=== PATIENT | male | born 1970 | race Caucasian/White ===

== ENCOUNTER → 2018-08-26 | Outpatient (CLI) | payer OTHER ==
--- NOTE | 2018-08-26 09:29 | RAD ---
EXAM DESCRIPTION: Ankle,Right 3 Views CLINICAL HISTORY: PAIN IN RIGHT ANKLE AND JOINTS OF RIGHT FOOT COMPARISON: 04 January 2017 TECHNIQUE: 3 views right FINDINGS: There is disruption of the ankle mortise with lateral subluxation of the talus in relation to the tibia. Fragmentation of the medial malleolus is observed from prior fracturing. Soft tissue swelling is observed about the ankle. An ankle joint effusion is seen. Tibial talar arthritis is noted. IMPRESSION: The exam reveals lateral subluxation of the talus in relation to the tibia. Degenerative changes are observed in the tibial talar articulation. The changes are more pronounced than seen previously. Electronically signed by: Felipe Colon MD 08/26/2018 9:27 AM CDT
== END ==
LOC: RAD 08:43
PROVIDERS: ATTEND Orthopaedic Surgery
DX: S93.01XA Subluxation of right ankle joint, initial encounter (principal)

== ENCOUNTER 2018-08-28 18:52 | Emergency (ER) | payer OTHER ==
[2018-08-28] MEDS ORDERED: diltiaZEM DRIP 125 MG/25 ML VIAL IVPB ONE (19:05)
--- NOTE | 2018-08-28 19:09 | ED.PDOC ---
History of Present Illness - General Chief Complaint: Chest Pain/NM Stated Complaint: Chest discomfort Time Seen by Provider: 08/28/18 19:01 Source: patient, Vital Signs reviewed Exam Limitations: no limitations Additional Information: 48 YEAR OLD HERE FOR EVALUATION OF " PALPITAIONS " ONSET YESTERDAY AFTERNOON NO ASSOCIATED CHEST PAIN NO SHORTNESS OF BREATH NO DIAPHORESIS DIZZINESS OR ANY NUMBNESS OOR WEAKNESS HE HAS HISTORY OF HYPERTENSION GOUT AND RESTLESS LEG SYNDROME - History of Present Illness Timing/Duration: days Severity: mild Prior Chest Pain/Cardiac Workup: no prior chest pain Improving Factors: nothing Worsening Factors: nothing Allergies/Adverse Reactions: Allergies NO KNOWN ALLERGY Allergy (Verified 10/06/15 15:03) Home Medications: Ambulatory Orders Allopurinol [Zyloprim] 100 mg PO DAILY 10/06/15 Olmesartan Medoxomil [Benicar] 20 mg PO DAILY 10/06/15 Carbidopa-Levodopa [Carbidopa/Levodopa 25-100 mg] 1 tab PO BEDTIME PRN 08/28/18 Review of Systems - Review of Systems Constitutional: States: no symptoms reported EENTM: States: no symptoms reported Respiratory: States: no symptoms reported Cardiology: States: palpitations Gastrointestinal/Abdominal: States: no symptoms reported Genitourinary: States: no symptoms reported Musculoskeletal: States: other - RIGHT ANKLE PAIN HAD INTRAARTICULAR STEROIDS [address]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 Skin: States: no symptoms reported Neurological: States: no symptoms reported Endocrine: States: no symptoms reported Past Medical History (General) - Patient Medical History Hx Stroke: No Hx Congestive Heart Failure: No Hx Hypertension: Yes Hx Diabetes: No Hx Gastroesophageal Reflux: No Hx MRSA: No Surgical History: cholecystectomy - Vaccination History Hx Influenza Vaccination: Yes - 2018 Hx Pneumococcal Vaccination: No - Social History Hx Tobacco Use: No Hx Alcohol Use: No Family Medical History - Family History Father Living Status: Cause of : Pneumonia Hx Family;Other: Hx of polio Physical Exam - Physical Exam General Appearance: Alert, Comfortable Eyes, Ears, Nose, Throat Exam: PERRL/EOMI, normal ENT inspection, TMs normal Neck: non-tender, full range of motion, supple Respiratory: chest non-tender, lungs clear, normal breath sounds, no respiratory distress, no accessory muscle use Cardiovascular/Chest: normal peripheral pulses, no edema, no gallop, no murmur, tachycardia, irregularly irregular Peripheral Pulses: radial,right: 2+, radial,left: 2+, femoral,right: 2+, femoral ,left: 2+ Gastrointestinal/Abdominal: normal bowel sounds, non tender, soft, no organomegaly, no pulsatile mass Extremity: normal range of motion, non-tender, normal inspection Neurologic: rn acute care II-XII nml as tested, no motor/sensory deficits, alert, normal mood/affect, oriented x 3 Lymphatic: no adenopathy Progress - Results/Orders Results/Orders: Laboratory Tests 08/28/18 19:21 WBC 10.3 RBC 5.71 Hgb 16.5 Hct 49.5 MCV 86.6 MCH 28.9 MCHC 33.4 RDW 13.8 Plt Count 276 MPV 8.6 Absolute Neuts (auto) 7.40 H Absolute Lymphs (auto) 2.10 Absolute Monos (auto) 0.70 Absolute Eos (auto) 0.00 Absolute Basos (auto) 0.10 Neutrophils % 71.2 Lymphocytes % 20.8 Monocytes % 7.1 Eosinophils % 0.2 L Basophils % 0.7 PT 9.8 INR 0.98 PTT (SP) 25.9 Sodium 141 Potassium 2.9 L Chloride 102 Carbon Dioxide 26 Anion Gap 15.9 BUN 33 H Creatinine 1.02 BUN/Creatinine Ratio 32.4 H Random Glucose 106 H Serum Osmolality 288.9 Calcium 9.4 Magnesium 2.2 Creatine Kinase 242 H* CK-MB (CK-2) 4.6 H* CK-MB (CK-2) % 1.90 Troponin I < 0.02 B-Natriuretic Peptide 125.0 H - EKG/XRAY/CT EKG: Atrial, Fibrillation XRAY: chest Departure - Departure Clinical Impression: Atrial fibrillation with RVR, Hypokalemia, Hypertensive heart disease Time of Disposition: 20:02 Disposition: Transfer to Hospital Condition: Good Departure Forms: ED Discharge - Pt. Copy, Patient Portal Self Enrollment Instructions: DI for Chest Pain Diet: low fat, low cholesterol, low salt diet Referrals: Felipe Mckeon III, MD [Primary Care Provider] - 1-2 Weeks Home Medications: Ambulatory Orders Allopurinol [Zyloprim] 100 mg PO DAILY 10/06/15 Olmesartan Medoxomil [Benicar] 20 mg PO DAILY 10/06/15 Carbidopa-Levodopa [Carbidopa/Levodopa 25-100 mg] 1 tab PO BEDTIME PRN 08/28/18 Transfer to Outside Facility - Transfer Information Accepting Provider:: DR KRISTOPHER YOON MD [facility] ED Accepting Facility: [facility]
[2018-08-28] MEDS ORDERED: SODIUM CHLORIDE 0.9% 100ML 100 ML IVPB ONE (19:10)
--- NOTE | 2018-08-28 19:21 | RAD ---
EXAM DESCRIPTION: Chest,1 View CLINICAL HISTORY:48 years Male, chest pressure Comparison: None FINDINGS: No focal lung consolidation. No pleural effusion. No pneumothorax. Cardiac and mediastinal silhouette is unremarkable. No acute osseous abnormality. Soft tissues are unremarkable. IMPRESSION: No acute findings. No focal lung consolidation. Electronically signed by: Robert Acuña MD 08/28/2018 7:20 PM CDT
[2018-08-28] MEDS ORDERED: diltiaZEM DRIP 125 MG in SODIUM CHLORIDE 0.9% 100ML 100 ML IVPB SCH (19:30)
[2018-08-28] MEDS ORDERED: KCL 40 MEQ/WATER FOR INJ 100ML 40 MEQ in PREMIX BAG 1 BAG IVPB ONE (20:14)
[2018-08-28] MEDS ORDERED: KCL 40 MEQ/WATER FOR INJ 100ML 100 ML IVPB ONE (20:17)
[2018-08-28 20:32] VITALS: BP 131/89; TEMP 98.6; O2SAT 98
== END 2018-08-28 20:50 | disposition short-term general hospital (02) ==
LOC: ER 18:52
DX: I48.91 Unspecified atrial fibrillation (principal); R00.0 Tachycardia, unspecified; I11.9 Hypertensive heart disease without heart failure; E87.6 Hypokalemia; I10 Essential (primary) hypertension; Z90.49 Acquired absence of other specified parts of digestive tract; Z87.01 Personal history of pneumonia (recurrent); Z86.12 Personal history of poliomyelitis

== ENCOUNTER 2018-10-22 19:07 | Emergency (ER) | payer OTHER ==
[2018-10-22 19:28] VITALS: TEMP 98; O2SAT 98
[2018-10-22] MEDS ORDERED: NITROGLYCERIN 0.4 MG 25 EA TAB SL ONE (19:30)
--- NOTE | 2018-10-22 20:29 | ED.PDOC ---
History of Present Illness - General Chief Complaint: Blood Pressure Problem Stated Complaint: high blood pressure, bradycardia Time Seen by Provider: 10/22/18 19:27 Source: patient Exam Limitations: no limitations - History of Present Illness Initial Comments: Lenny Whitney 48 y/o malewith history of Afib in July 2018 successfully cardioverted came to ER with low heart rate felt dizzy and weak since starting [id number] mg bid Metoptolol-25 mg bid which was reduced from 50 mg Eliquis and Benicar 40mg..Has also some chest pressure,no nausea/vomiting ,no diaphoresis. Timing/Duration: 1 week Severity: moderate Location: other - see hpi Activities at Onset: none Prior Chest Pain/Cardiac Workup: echocardiography, other - see hpi Improving Factors: nothing Worsening Factors: nothing Nitro Today/Relief: no nitro taken today Aspirin Treatment Today: 81 mg x 4, provided by ED Associated Symptoms: other - see hpi Allergies/Adverse Reactions: Allergies NO KNOWN ALLERGY Allergy (Verified 10/06/15 15:03) Home Medications: Ambulatory Orders Allopurinol [Zyloprim] 100 mg PO DAILY 10/06/15 Olmesartan Medoxomil [Benicar] 20 mg PO DAILY 10/06/15 Carbidopa-Levodopa [Carbidopa/Levodopa 25-100 mg] 1 tab PO BEDTIME PRN 08/28/18 Apixaban [Eliquis] 5 mg PO BID 10/22/18 Flecainide [Tambocor] 50 mg PO BID 10/22/18 Metoprolol Tartrate 25 mg PO BID 10/22/18 Potassium 99 mg PO DAILY 10/22/18 Review of Systems - Review of Systems Constitutional: States: no symptoms reported EENTM: States: no symptoms reported Respiratory: States: no symptoms reported Cardiology: States: see HPI, other - slow heart rate Gastrointestinal/Abdominal: States: no symptoms reported Genitourinary: States: no symptoms reported Musculoskeletal: States: no symptoms reported Skin: States: no symptoms reported Neurological: States: no symptoms reported Endocrine: States: no symptoms reported Hematologic/Lymphatic: States: no symptoms reported Past Medical History (General) - Patient Medical History Hx Stroke: No Hx Cardiac Disorders: Yes - a-fib Hx Congestive Heart Failure: No Hx Hypertension: Yes Hx Diabetes: No Hx Gastroesophageal Reflux: Yes Hx MRSA: No Surgical History: cholecystectomy, other - vasectomy - Vaccination History Hx Influenza Vaccination: Yes Hx Pneumococcal Vaccination: No - Social History Hx Tobacco Use: No Hx Alcohol Use: No Hx Physical Abuse: No Hx Emotional Abuse: No - Activities of Daily Living Patient Lives Alone: No - Triage Comment ED Triage Comment: recent medication changes after seeing production superintendent, now elevated blood pressure and slow pulse rate Family Medical History - Family History Father Living Status: Cause of : Pneumonia Hx Family Asthma: Yes - copd-mom Hx Family;Other: Hx of polio Physical Exam - Physical Exam General Appearance: Alert, Comfortable, No apparent distress Eyes, Ears, Nose, Throat Exam: normal ENT inspection Neck: non-tender, supple, normal inspection Respiratory: chest non-tender, lungs clear, normal breath sounds, no respiratory distress Cardiovascular/Chest: normal peripheral pulses, regular rate, rhythm, bradycardia - HR=-58 Peripheral Pulses: radial,right: 2+, radial,left: 2+ Gastrointestinal/Abdominal: non tender, soft, no organomegaly Extremity: no pedal edema, no calf tenderness Neurologic: alert, oriented x 3 Skin Exam: normal color, warm/dry Progress - Progress Progress: 10/22/18 20:32 Vital Signs - 8 hr 10/22/18 10/22/18 10/22/18 19:24 19:36 20:02 Temperature 98.0 F Pulse Rate [ 58 L 60 60 Apical] Respiratory 16 Rate Blood Pressure 182/109 155/100 [Left Arm] O2 Sat by Pulse 98 98 Oximetry 10/22/18 10/22/18 10/22/18 20:11 20:12 20:13 Temperature 98.0 F Pulse Rate [ 75 75 62 Apical] Respiratory 16 16 16 Rate Blood Pressure 158/96 150/103 157/98 [Left Arm] O2 Sat by Pulse 98 98 98 Oximetry - Results/Orders Results/Orders: Vital Signs 10/22/18 10/22/18 10/22/18 19:24 19:36 20:02 Temperature 98.0 F Pulse Rate [ 58 L 60 60 Apical] Respiratory 16 Rate Blood Pressure 182/109 155/100 [Left Arm] O2 Sat by Pulse 98 98 Oximetry 10/22/18 10/22/18 10/22/18 20:11 20:12 20:13 Temperature 98.0 F Pulse Rate [ 75 75 62 Apical] Respiratory 16 16 16 Rate Blood Pressure 158/96 150/103 157/98 [Left Arm] O2 Sat by Pulse 98 98 98 Oximetry 10/22/18 10/22/18 20:41 21:26 Temperature Pulse Rate [ 58 L 60 Apical] Respiratory Rate Blood Pressure 155/95 155/100 [Left Arm] O2 Sat by Pulse Oximetry 2135 H-Case discussed with vp [employer] production superintendent advised to reduce Metoprolol-12.5 mg po BID;continue with Tambocor 50 mg BID and to call 's office in am;Also discussed test result with patient. - EKG/XRAY/CT EKG: Sinus, nonspecific ST T wave Chg Comments: HR-58 XRAY: chest - no acute findings Departure - Departure Clinical Impression: Dizziness, History of atrial fibrillation Hypertension Qualifiers: Hypertension type: unspecified Qualified Code(s): I10 - Essential (primary) hypertension Time of Disposition: 21:45 Disposition: Discharge to Home or Self Care Condition: Fair Departure Forms: ED Discharge - Pt. Copy, Patient Portal Self Enrollment Instructions: Atrial Fibrillation (DC), Medicines for Atrial Fibrillation, Atrial Fibrillation Referrals: Felipe Mckeon III, MD [Primary Care Provider] - 1-2 Weeks Home Medications: Ambulatory Orders Allopurinol [Zyloprim] 100 mg PO DAILY 10/06/15 Olmesartan Medoxomil [Benicar] 20 mg PO DAILY 10/06/15 Carbidopa-Levodopa [Carbidopa/Levodopa 25-100 mg] 1 tab PO BEDTIME PRN 08/28/18 Apixaban [Eliquis] 5 mg PO BID 10/22/18 Flecainide [Tambocor] 50 mg PO BID 10/22/18 Metoprolol Tartrate 25 mg PO BID 10/22/18 Potassium 99 mg PO DAILY 10/22/18 Additional Instructions: Need to reduce dose of Metoprolol-12.5 mg bid continue Tambocor and rest of home medications;Call up Dr. Donovan's office your production superintendent in am.;return to ER as needed
--- NOTE | 2018-10-22 21:15 | RAD ---
EXAM DESCRIPTION: Chest,1 View CLINICAL HISTORY: 48 years Male, chest pressure Comparison: 08/28/2018 FINDINGS: Single AP view of the chest. Cardiomediastinal silhouette is within normal limits. No focal lung consolidation. No pleural effusion. No pneumothorax. No acute osseous finding. IMPRESSION: No acute chest finding. Electronically signed by: Letty Ochoa MD 10/22/2018 9:14 PM [employer]BER AP[employer]ENTICE
[2018-10-22 22:06] VITALS: BP 145/100
== END 2018-10-22 22:05 | disposition home or self-care (01) ==
LOC: ER 19:07
DX: R42 Dizziness and giddiness (principal); I10 Essential (primary) hypertension; I48.91 Unspecified atrial fibrillation; K21.9 Gastro-esophageal reflux disease without esophagitis; Z79.899 Other long term (current) drug therapy

== ENCOUNTER → 2019-01-13 | Outpatient (CLI) | payer OTHER | LOC: GMAL 17:45 | PROVIDERS: ATTEND Family Medicine | DX: R79.0 Abnormal level of blood mineral (principal) ==

== ENCOUNTER → 2020-10-18 | Outpatient (CLI) | payer BC | LOC: GMAL 10:40 | PROVIDERS: ATTEND Family Medicine | DX: D51.8 Other vitamin B12 deficiency anemias (principal); E78.2 Mixed hyperlipidemia; Z79.899 Other long term (current) drug therapy; Z12.5 Encounter for screening for malignant neoplasm of prostate; M10.9 Gout, unspecified; E55.9 Vitamin D deficiency, unspecified ==